=== PATIENT | female | born 1980 ===

== ENCOUNTER 2019-07-26 13:04 | Inpatient (IN) | payer BC ==
[~2019-07-26] VITALS: Ht 172.7 cm; Wt 94.8 kg
[~2019-07-26 13:04] MED LIST: BUPIVACAINE /DEX PF 0.75% SPINAL 2 ML AMP INJ ONE; LR 1,000 ML IV.SOLN IV ONE; MIDAZOLAM HCL 5 MG/5 ML VIAL IVP ONE; MORPHINE SULFATE 10MG/10ML PF AMP EP ONE; NS IRRIG SOLN 1000 ML IR ONE
[2019-07-26] MEDS ORDERED: OXYTOCIN/0.9 % SODIUM CHLORIDE 1,000 ML IV SCH ×2 (14:29→22:35)
[2019-07-26] MEDS ORDERED: TERBUTALINE SULFATE 1 MG/ML VIAL SUBCUT ONE (14:30)
[2019-07-26] MEDS ORDERED: DINOPROSTONE 10 MG SUPP VG ONE (14:30)
[2019-07-26] MEDS ORDERED: AMPICILLIN SODIUM 2 GM in NS 100 ML IV ONE (14:30)
[2019-07-26] MEDS ORDERED: MORPHINE SULFATE 10 MG/ML VIAL IVP PRN (15:00)
[2019-07-26 15:03] LABS: BASOPHILS % (AUTO) 0.4 % (0.0-2.0); EOSINOPHILS # (AUTO) 0.1 K/uL (0.0-0.4); EOSINOPHILS % (AUTO) 0.7 % (0.0-4.0); HEMATOCRIT 31.5 % (36-48); LYMPHOCYTES # (AUTO) 1.6 K/uL (1.0-5.5); LYMPHOCYTES % (AUTO) 20.6 % (20.5-51.5); MEAN CORPUSCULAR HEMOGLOBIN 34 pg (27-31); MEAN CORPUSCULAR HGB CONC 35 % (32-36); MEAN CORPUSCULAR VOLUME 97 fL (79.0-98.0); MONOCYTES # (AUTO) 0.5 K/uL (0.0-1.0); MONOCYTES % (AUTO) 5.8 % (1.7-9.3); NEUTROPHILS # (AUTO) 5.6 K/uL (1.8-7.7); NEUTROPHILS % (AUTO) 72.5 % (40.0-70.0); PLATELET COUNT (AUTO) 170 K/uL (130-430); RED BLOOD CELL COUNT(AUTO) 3.25 MIL/uL (4.2-6.2); RED CELL DISTRIBUTION WIDTH 13.7 % (9.0-15.0); WHITE BLOOD COUNT (AUTO) 7.8 K/uL (4.8-10.8)
[2019-07-26] MEDS ORDERED: AMPICILLIN SODIUM 2 GM VIAL ONE (15:31)
[2019-07-26 17:45] VITALS: BP_SYST 116
[2019-07-26] MEDS: AMPICILLIN SODIUM 1 GM in NS 50 ML IV SCH (20:55)
[2019-07-26] MEDS ORDERED: TEMAZEPAM 15 MG CAPSULE PO PRN (22:45)
[2019-07-27] MEDS: LR 1,000 ML IV SCH ×3 (00:06→12:10)
[2019-07-27] MEDS: AMPICILLIN SODIUM 1 GM in NS 50 ML IV SCH ×7 (00:06→23:54)
[2019-07-27] MEDS ORDERED: ROPIVACAINE HCL/PF 0.2% 200 ML ONE (09:40)
[2019-07-27] MEDS ORDERED: fentaNYL CITRATE/PF 100 MCG/2 ML AMP ONE ×2 (09:40→22:49)
[2019-07-27] MEDS ORDERED: FENT2mCg/mL-ROPIVA0.2%/NS EPID 200 ML EP SCH (10:00)
[2019-07-27] MEDS ORDERED: LR 500 ML IV ONE (10:00)
[2019-07-27] MEDS ORDERED: ROPIVACAINE HCL/PF 0.2% 100 ML ONE (20:53)
[2019-07-28] MEDS ORDERED: ROPIVACAINE HCL/PF 0.2% 100 ML ONE (03:01)
[2019-07-28] MEDS ORDERED: LR 1,000 ML IV ONE (03:30)
[2019-07-28] MEDS ORDERED: CEFAZOLIN 2 GM IVPB PREMIX 50 ML IV ONE ×2 (03:30→03:56)
[2019-07-28] MEDS ORDERED: OXYTOCIN 10 UNIT/ML VIAL ONE ×2 (03:54→04:24)
[2019-07-28] MEDS ORDERED: KETOROLAC TROMETHAMINE 60 MG/2 ML VIAL IM PRN (04:30)
[2019-07-28] MEDS ORDERED: NALBUPHINE HCL 10 MG/ML AMP IVP PRN (04:30)
[2019-07-28] MEDS ORDERED: ONDANSETRON HCL 4 MG/2 ML VIAL IVP PRN (04:30)
[2019-07-28] MEDS ORDERED: DIPHENHYDRAMINE INJ 50 MG/ML VIAL IVP PRN (04:30)
[2019-07-28] MEDS ORDERED: MORPHINE SULFATE 10MG/10ML PF AMP EP SCH (04:30)
[2019-07-28] MEDS ORDERED: NALOXONE HCL 0.4 MG/ML AMP (NARCAN) IVP PRN ×2 (04:30)
[2019-07-28] MEDS ORDERED: fentaNYL CITRATE/PF 100 MCG/2 ML AMP IVP PRN ×2 (04:30)
[2019-07-28] MEDS ORDERED: LR 1,000 ML IV SCH (04:59)
[2019-07-28] MEDS ORDERED: OXYTOCIN/0.9 % SODIUM CHLORIDE 1,000 ML IV ONE (04:59)
[2019-07-28] MEDS ORDERED: TEMAZEPAM 15 MG CAPSULE PO PRN (05:00)
[2019-07-28] MEDS ORDERED: MEASLES,MUMPS&RUBELLA VACC/PF 12500 UNIT/0.5 ML VIAL SUBQ PRN (05:00)
[2019-07-28] MEDS ORDERED: DIPH-TET-PERTUS Vaccine 0.5 ML VIAL (ADACEL) I.M. PRN (05:00)
[2019-07-28] MEDS ORDERED: SENNOSIDES/DOCUSATE SODIUM 1 TAB TABLET(SENOKOT-S) PO PRN (05:00)
[2019-07-28] MEDS ORDERED: ANUSOL 1 EA SUPP.RECT (PREPARATION H) RC PRN (05:00)
[2019-07-28] MEDS ORDERED: OXYCODONE/ACETAMINOPHEN 5-325 TABLET PO PRN (05:00)
[2019-07-28] MEDS ORDERED: HYDROcodone/ACETAMIN 5-325 MG TAB (NORCO/ VICODIN) PO PRN (05:00)
[2019-07-28] MEDS ORDERED: LANOLIN 7 GM OINT. TP PRN (05:00)
[2019-07-28] MEDS ORDERED: BISACODYL 10 MG/SUPPOSITORY RC PRN (05:00)
[2019-07-28] MEDS ORDERED: RHO(D) IMMUNE GLOBULIN/MALTOSE 1500 UNITS/1.3 ML (WINHRO) IM PRN (05:00)
[2019-07-28] MEDS ORDERED: DOCUSATE SODIUM 100 MG CAPSULE PO PRN (05:00)
[2019-07-28 05:21] VITALS: BP_SYST 115
[2019-07-28] MEDS ORDERED: BUPIVACAINE /PF 0.5% 30 ML VIAL INJ ONE (11:40)
[2019-07-28] MEDS ORDERED: BUPIVACAINE /PF 0.75% 10 ML VIAL INJ ONE (11:40)
[2019-07-29] MEDS: IBUPROFEN 600 MG TABLET PO SCH ×3 (00:03→18:16)
[2019-07-29] MEDS: SIMETHICONE 80 MG TAB.CHEW PO PRN ×4 (00:03→17:54)
[2019-07-29] MEDS: OXYCODONE/ACETAMINOPHEN 5-325 TABLET PO PRN ×3 (06:33→17:55)
[2019-07-29 06:56] LABS: BASOPHILS % (AUTO) 0.2 % (0.0-2.0); EOSINOPHILS % (AUTO) 0.2 % (0.0-4.0); HEMOGLOBIN 7.4 g/dL (12.0-16.0); LYMPHOCYTES # (AUTO) 1.4 K/uL (1.0-5.5); LYMPHOCYTES % (AUTO) 16.1 % (20.5-51.5); MEAN CORPUSCULAR HEMOGLOBIN 34 pg (27-31); MEAN CORPUSCULAR HGB CONC 35 % (32-36); MEAN CORPUSCULAR VOLUME 97 fL (79.0-98.0); MONOCYTES # (AUTO) 0.4 K/uL (0.0-1.0); NEUTROPHILS % (AUTO) 78.5 % (40.0-70.0); PLATELET COUNT (AUTO) 126 K/uL (130-430); RED BLOOD CELL COUNT(AUTO) 2.17 MIL/uL (4.2-6.2); RED CELL DISTRIBUTION WIDTH 13.9 % (9.0-15.0); WHITE BLOOD COUNT (AUTO) 8.9 K/uL (4.8-10.8)
== END 2019-07-29 18:10 | disposition home or self-care (01) | DRG 788 ==
LOC: SPU 14:14
PROVIDERS: ADMIT Obstetrics & Gynecology; ATTEND Obstetrics & Gynecology
PROC: 3E0P7VZ Introduction of Hormone into Female Reproductive, Via Natural or Artificial Opening (ICD-10-PCS; 2019-07-27)
PROC: 10D00Z1 Extraction of Products of Conception, Low, Open Approach (ICD-10-PCS; principal; 2019-07-28 03:35)
DX: O62.0 Primary inadequate contractions (principal); O48.0 Post-term pregnancy; O35.8XX0 Maternal care for other (suspected) fetal abnormality and damage, not applicable or unspecified; O62.1 Secondary uterine inertia; O43.213 Placenta accreta, third trimester; O99.824 Streptococcus B carrier state complicating childbirth; Z37.0 Single live birth; Z3A.41 41 weeks gestation of pregnancy
CPT/HCPCS: 36415; 85025; 86886; 86900; 86901; J0290; J0690; J1885; J2250; J2274; J2590; J2795; J3010; J3490; J7120